=== PATIENT | female | born 1985 | race Hispanic/Latino ===

== ENCOUNTER 2022-10-08 09:12 | Emergency (ER) | payer MEDICARE ==
[~2022-10-08] VITALS: Ht 152.4 cm; Wt 38.6 kg
[2022-10-08] MEDS ORDERED: SODIUM CHLORIDE 0.9% IV SCH (09:30)
[2022-10-08] MEDS ORDERED: CLINDAMYCIN 600MG / 50ML 50 ML IV ONE (09:30)
[2022-10-08 10:07] LABS: BASOPHILS % 0.1 % (0.0-1.0); EOSINOPHILS # (AUTO) 0.2 (0.0-0.4); HEMATOCRIT 33.1 % (34.2-44.1); HEMOGLOBIN 10.6 g/dL (12.0-16.0); LYMPHOCYTES # (AUTO) 1.6 (1.0-3.2); MEAN CORPUSCULAR HEMOGLOBIN 27.1 pg (28-32); MEAN CORPUSCULAR VOLUME 84.7 fL (81-99); MONOCYTES # (AUTO) 0.6 (0.2-0.8); MONOCYTES % 6.3 % (4.4-11.3); NEUTROPHILS # (AUTO) 6.4 (2.1-6.9); NEUTROPHILS % 73.3 % (38.7-80.0); PLATELET COUNT 415 x10e3/uL (140-360); RED BLOOD COUNT 3.91 x10e6/uL (3.6-5.1); RED CELL DISTRIBUTION WIDTH 15.3 % (11.7-14.4)
[2022-10-08 10:12] LABS: INR 1.07; PROTHROMBIN TIME 14.4 seconds (11.9-14.5)
[2022-10-08 10:13] LABS: PARTIAL THROMBOPLASTIN TIME 34.7 seconds (23.8-35.5)
[2022-10-08 10:20] LABS: ALANINE AMINOTRANSFERASE 11 IU/L (0-55); ALBUMIN 3.3 g/dL (3.5-5.0); ALBUMIN/GLOBULIN RATIO 0.8 (0.8-2.0); ALKALINE PHOSPHATASE 58 IU/L (40-150); ANION GAP 12.8 mmol/L (8-16); BLOOD UREA NITROGEN 15 mg/dL (7-26); BUN/CREATININE RATIO 23 (6-25); CALCIUM 8.4 mg/dL (8.4-10.2); CARBON DIOXIDE 28 mmol/L (22-29); CHLORIDE 99 mmol/L (98-107); CREATININE, SERUM 0.66 mg/dL (0.57-1.11); GLUCOSE 97 mg/dL (74-118); POTASSIUM 2.8 mmol/L (3.5-5.1); SODIUM 137 mmol/L (136-145)
[2022-10-08] MEDS ORDERED: POTASSIUM CHLORIDE 20 MEQ TAB CR PO STA (11:41)
[2022-10-08] MEDS ORDERED: CEPHALEXIN500 MG PO (12:06)
[2022-10-08] MEDS ORDERED: BACTRIM DS TAB1 EACH PO (12:06)
[2022-10-08 12:24] VITALS: O2SAT 98
[2022-10-08 12:25] LABS: CLARITY,URINE SL CLOUDY (CLEAR); COLOR,URINE YELLOW (YELLOW); KETONES,URINE TRACE (NEGATIVE); LEUKOCYTE ESTERASE ,URINE SMALL (NEGATIVE); NITRITE,URINE POSITIVE (NEGATIVE); PROTEIN,URINE DIPSTICK 1+ (NEGATIVE); URINE UROBILINOGEN 1 mg/dL (0.2 - 1)
[2022-10-08 12:33] LABS: BACTERIA,URINE MANY /HPF; EPITHELIAL CELLS,URINE MODERATE /LPF; RBC,URINE 0-5 /HPF (0-5); WBC,URINE (MAN) >50 /HPF (0-5)
== END 2022-10-08 12:29 | disposition home or self-care (01) ==
LOC: ER 09:16
DX: L03.115 Cellulitis of right lower limb (principal); F32.A Depression, unspecified; Z20.822 Contact with and (suspected) exposure to COVID-19
CPT/HCPCS: 0223U; 36415; 71046; 73610; 80053; 81001; 83605; 84702; 85025; 85610; 85730; 87040; 87086; 87186; 99284; J7030